=== PATIENT | female | born 1995 | race Caucasian/White ===

== ENCOUNTER 2017-04-23 23:02 | Emergency (ER) | payer BC ==
--- NOTE | 2017-04-23 23:22 | ERNOTE ---
ER Female HPI Date of Service: 04/23/17 Stated Complaint: URINARY PAIN Time Seen by Provider: 04/23/17 23:08 Source: patient Exam Limitations: no limitations Immunizations: IMMUNIZATION HX Immunizations Up to Date Yes History of Influenza Vaccine Yes Hx Pneumococcal Vaccination No Allergies/Adverse Reactions: Allergies amoxicillin [Amoxicillin] Allergy (Verified 04/23/17 23:15) Penicillins Allergy (Verified 04/23/17 23:15) Home Medications: HOME MEDICATIONS Insulin Aspart [Novolog] 11 unit SQ AC 04/21/13 [Last Taken Unknown] Insulin Glargine,Hum.rec.anlog [Lantus] 35 unit SQ HS 04/21/13 [Last Taken Unknown] Sulfamethoxazole/Trimethoprim [Bactrim Ds] 1 tab PO BID #14 tablet 04/24/17 [ Last Taken Unknown] - History of Present Illness Narrative: pt is here for burning upon urination and low back pain since yesterday. She states that right now she does not have the back pain. She denies any nausea vomiting chills. She is unsure if she is Review of Systems - Review of Systems Constitutional: Present: no symptoms reported EYE: Present: no symptoms reported ENT: Present: no symptoms reported Respiratory: Present: no symptoms reported Cardiology: Present: no symptoms reported Gastrointestinal/Abdominal: Present: no symptoms reported Genitourinary: Present: See HPI Musculoskeletal: Present: no symptoms reported Skin: Present: no symptoms reported - Patient's Past Medical History Patient History - Medical: Diabetes Type 1, Hypothyroidism Patient History - Cardiac/Respiratory: No pertinent hx Patient History - Cancer: No Hx of Cancer Patient History - Surgical Procedures: No surgical history Patient History - Other: None LMP (females 10-50): last week - Social History Living Situations: home Abuse History: No History of abuse Psych History: No pertinent hx Smoking Status: Never smoker Have you smoked in the past 12 months: No Do you dip or chew tobacco: No Alcohol Use: rarely Drug Use: none - Immunizations Immunizations Up to Date: Yes Hx Pneumococcal Vaccination: No History of Influenza Vaccine: Yes Physical Exam - Physical Exam General Appearance: Present: wd/wn, alert, no apparent distress Head Exam: Present: normal inspection Respiratory: Present: no respiratory distress, normal breath sounds, no accessory muscle use, chest nontender, lungs clear Cardiovascular/Chest: Present: regular rate, rhythm, no murmur, normal peripheral pulses Back Exam: Present: normal inspection, normal range of motion, no CVA tenderness , no vertebral tenderness ED Progress - Results and Orders Patient's Lab Results:: I have reviewed the patient's lab results. - Vital Signs Patient's Vital Signs:: I have reviewed the patient's vital signs. Vital Signs: Vital Signs 04/23/17 23:06 Temperature 37.2 C Pulse Rate 103 H Respiratory 15 Rate Blood Pressure 117/74 O2 Sat by Pulse 100 Oximetry - Progress/Reassessment Chief Complaint: Urinary Tract Problems Plan - Plan Plan: Patient does have leukocytes on her urinalysis additionally she has symptomatic UTI and will be treated as such. Departure Clinical Impression: UTI (urinary tract infection) Qualifiers: Urinary tract infection type: site unspecified Hematuria presence: with hematuria Qualified Code(s): N39.0 - Urinary tract infection, site not specified ; R31.9 - Hematuria, unspecified; R31.9 - Hematuria, unspecified - Departure Disposition: Home self-care Condition: Good Instructions: Urinary Tract Infection, Adult, [id number] Referrals: Dima Tanner MD [Primary Care Provider] - Prescriptions: Sulfamethoxazole/Trimethoprim [Bactrim Ds] 1 tab PO BID #14 tablet
[2017-04-23 23:49] LABS: Urine Bacteria 4+; Urine RBC >50 /hpf (0-5); Urine WBC >50 /hpf (0-5)
[2017-04-24] MEDS ORDERED: SULFAMETHOXAZOLE/TRIMETHOPRIM 1 TAB TABLET PO ONE (00:09)
[2017-04-24] MEDS ORDERED: SULFAMETHOXAZOLE/TRIMETHOPRIM 1 TAB TABLET ONE (00:23)
[2017-04-24 00:36] VITALS: BP 105/70
== END 2017-04-24 00:28 | disposition home or self-care (01) ==
LOC: ER 23:02
DX: N39.0 Urinary tract infection, site not specified (principal); R31.9 Hematuria, unspecified; E10.9 Type 1 diabetes mellitus without complications; Z79.4 Long term (current) use of insulin